=== PATIENT | female | born 1975 ===

== ENCOUNTER 2016-08-30 07:00 | Day surgery (SDC) | payer MEDICARE, OTHER ==
[2016-08-23 12:48] VITALS: BMI 35.7
[2016-08-30 07:28] LABS: ADD MANUAL DIFF? NO
[2016-08-30 07:33] LABS: BASO # 0.03 K/mm3 (0.0-2.0); BASO % 0.3 % (0.0-3.0); EOS # 0.9 (0.0-0.7); EOS % 8.6 % (1.5-5.0); GRAN # 5.64 (1.4-6.5); GRAN % 57.4 % (50.0-68.0); HEMATOCRIT 35.2 % (36.0-48.0); LYMPH # 2.6 (1.2-3.4); MEAN CELL VOLUME 87.6 fL (80.0-105.0); MEAN CORPUSCULAR HEMOGLOBIN 28.1 pg (25.0-35.0); MEAN CORPUSCULAR HGB CONC 32.1 g/dl (31.0-37.0); MEAN PLATELET VOLUME 8.8 fl (7.0-11.0); MONO # 0.8 (0.1-0.6); MONO % 7.7 % (1.0-6.0); PLATELET COUNT 259 10^3/uL (120.0-450.0); RED CELL DISTRIBUTION WIDTH 14.4 % (11.5-14.5); WHITE BLOOD COUNT 9.8 10^3/ul (4.5-11.0)
[2016-08-30 07:46] LABS: INR 0.94 (0.93-1.08); PARTIAL THROMBOPLASTIN TIME 26.1 Seconds (23.7-30.8)
[2016-08-30 07:54] LABS: CALCIUM 8.9 mg/dL (8.4-10.5); POTASSIUM 3.9 mmol/L (3.6-5.0)
[2016-08-30 08:09] VITALS: RESP 18; TEMP 98.3; O2SAT 93
[2016-08-30] MEDS ORDERED: Lidocaine 2% Inj (20ml) ONE (08:52)
[2016-08-30] MEDS ORDERED: Iohexol 350mgl/ml 50 ML ONE (08:53)
[2016-08-30] MEDS ORDERED: Midazolam 2 MG/2 ML VIAL ONE (08:53)
[2016-08-30] MEDS ORDERED: Iodixanol 320 MG/ML 200 ML BOTTLE IV ONE (08:53)
[2016-08-30] MEDS ORDERED: Iohexol 350 MG/100 ML VIAL ONE (09:43)
[2016-08-30] MEDS ORDERED: Sodium Chloride 0.45% 1,000 ML IV SCH (10:45)
--- NOTE | 2016-08-30 11:10 | CARDCATH ---
PROCEDURE DATE: 08/30/2016 HISTORY: The patient is a 41-year-old woman who presents with an abnormal stress test. She underwen t a stress test for preop clearance for possible renal transplantation. The patient suffers from end-stage renal disease treated with peritoneal dialysis, diabetes mellitus, hypertension, hypercholesterolemia and obesity. Because of her abnormal stress test, she was presented for cardiac catheterization. PROCEDURE: Left heart catheterization with coronary angiography and left ventriculogram, followed by PTCA and stent of 2 lesions in the RCA. The right femoral artery was cannulated with a 6-Frisian sheath. There were no complications. The findings on catheterization revealed a right dominant circulation. The RCA revealed diffuse atherosclerosis and calcification. There was a 70-80% stenosis in the mid p ortion as well as a long 80-90% stenosis in the proximal portion of the RCA. The left main artery revealed diffuse intimal irregularities without critical lesions. The LAD revealed diffuse atherosclerosis with a complex bifurcating mid LAD stenoses of 80-90% with a n 80% stenosis in the diagonal vessel. The circumflex artery was a large codominant vessel. There were long 50% lesions in the obtuse brian nal branch and in the mid portion of the circumflex artery as well. LV function was performed in the DEGROOT projection. In the DEGROOT projection, wall motion was normal with an EF of 55%. The patient was given Angiomax, renal dose adjusted. The right guiding catheter was placed in the ostium of the RCA. A Guideliner was used for better sup port. An ATW wire was used to cross the multiple lesions. A 2.0 balloon was utilized to predilate both les ions. The mid lesion was stented with a 2.25 x 15 mm drug-eluting stent. The proximal lesion was stented with a 2.75 x 18 mm drug-eluting stent. Repeat coronary angiography revealed an excellent result with no residual stenosis and MICHAEL 3 flow. Angio-Seal was used to close the femoral artery site. SUMMARY: 1. The procedure was successful percutaneous transluminal coronary angioplasty and stent of 2 critic al lesions in the right coronary artery with drug-eluting stents. 2. Cardiac catheterization revealed diffuse atherosclerosis with multivessel coronary artery disease with the most critical lesions in the right coronary artery as well as in the left anterior descendi ng and diagonal vessels with borderline critical lesions in the circumflex artery. 3. Left ventricular function was normal which is much better than the stress test report. Given these findings, the patient will need to remain on aspirin indefinitely and Plavix for at least a year. I have changed her statin therapy from Pravachol to Lipitor 40 mg daily. Because of the lack of peritoneal dialysis at [facility] and after consultation with the nephro logist, if the patient remains stable, we will discharge her later this evening so that the patient c an go home for peritoneal dialysis at home. Followup instructions have been given to the patient. S he will see me in the office next week on Friday. In addition, we will schedule her for staged PTCA of the LAD and diagonal vessels next week. Uday Chavez MD cc: [id number] TT: 08/30/2016 11:09:33 tn
--- NOTE | 2016-08-30 12:23 | CP.PCM.CON ---
History of Present Illness - History of Present Illness History of Present Illness: Initial Nephrology Consultation: Assessment/Plan: End stage renal disease on APD: Pt due for PD tonight. she is planned for d/c home today evening and she will resume her PD at home. No acute need for dialysis at this time. Nephrovite 1 tab/day Hyperphosphatemia: continue with home meds (Aurxia) Hypertension: resume home meds. She takes Cardizem, coreg, hydralazine and lisinopril Dialysis consistent diabetic diet. Glycemic control CAD management as per cardiology. Thanks for allowing me to participate in care of your patient. Will follow patient with you. Please call if any Qs. D/w primary team Dr Abisai Linares Office: [phone] Chief Complaint; dialysis. I feel anxious HPI: Pt is a 41 y/o F with hx of ESRD on peritoneal dialysis (APD) x 1 year, had dialysis last night, also hx of DM since childhood complicated by diabetic kidney disease, retinopathy, visual impairment, HTN x 1 year, hyperphosphatemia , underwent cardiac cath today which showed Obstructive CAD and she underwent stent placement. patient was seen for ESRD management. she feels anxious and reports chronic SOB when lay flat. makes urine. denies chest pain/leg swelling. PD: she uses cycler at night 5 cycles 2000 mL fill volume with 1.5% and 2.5% dextrose ROS: Constitutional Symptoms: Denies fever. No chills. No Recent Weight Changes Eyes: c/o decrease vision, denies watery eyes, denies double vision Ears/Nose/Mouth/Throat: Denies Abnormal Taste. No Bad breath or Bad Taste. Cardiovascular: denies chest pain. There is c/o chronic shortness of breath. No palpitations. Pulmonary: c/o chrnic shortness of breath no cough. Gastrointestinal: denies abdominal pain No nausea. No vomiting. c/o constipation. Denies Bleeding Genitourinary: makes urine. no painful or burning urination. no blood Neurological: Denies headaches. No dizziness. Denies loss of balance. Denies weakness, denies tingling/numbness Dermatological: No Rash or Bruising or ulcers. Psychiatric: c/o Anxiety. No depression. Denies hallucinations. Rheumatological:no joint pain Denies Joint swelling Endocrine: Denies over tiredness. no Fatigue and no Heat/Cold Intolerance. Physical Examination: General Appearance: Comfortable, no acute respi distress. co-operative. daughter bedside Vitals reviewed and noted as below Head; Atraumatic, normocephalic ENT: no ulcers no thrush. Tongue is midline. Oropharynx: no rash or ulcers. EYES: Pupils are equal, round and reactive to light accommodation. Eye muscles and extraocular movement intact. Sclera is anicteric. Neck; supple no lymphadenopathy, no thyromegaly or bruit Lungs: normal respiratory rate/effort. Breath sounds bilateral equal and clear Heart: Normal rate. s1s2 normal. No rub or gallop. Extremities: no edema. No varicose veins Neurological: Patient is alert, awake and oriented to person, place and time. No focal deficit. Strength bilateral appropriate and equal Skin: Warm and dry. Normal turgor. No rash. Palpitation: Normal elasticity for age Abdomen: Abdomen is soft. Bowel sounds +. There is no abdominal tenderness, no guarding/rigidity or organomegaly Psych: normal insight and upset MSK: no joint tenderness or swelling. Digits and nails normal, no deformity : kidney or bladder not palpable Access: has PD catheter Labs/imaging/EKG reviewed. 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) Other/Comment: hx nasal polyps - RENAL Hx Chronic Kidney Disease: Yes Hx Kidney Stones: Yes Hx Pyelonephritis: Yes Hx Renal Failure: Yes (not on dialysis as of this date) - ENDOCRINE/METABOLIC Hx Endocrine Disorders: Yes Hx Diabetes Mellitus Type 1: Yes - HEMATOLOGICAL/ONCOLOGICAL Hx Blood Transfusions: No - INTEGUMENTARY Hx Dermatological Problems: No - MUSCULOSKELETAL/RHEUMATOLOGICAL Hx Musculoskeletal Disorders: No - GASTROINTESTINAL Hx Gastrointestinal Disorders: Yes Hx Gall Bladder Disease: Yes - GENITOURINARY/GYNECOLOGICAL Hx Genitourinary Disorders: No - PSYCHIATRIC Hx Emotional Abuse: No Hx Physical Abuse: No Hx Substance Use: No - SURGICAL HISTORY Hx Surgeries: Yes - ANESTHESIA Hx Anesthesia Reactions: No Hx Malignant Hyperthermia: No Meds Home Medications: Home Medication List Medication Instructions Recorded Confirmed Type Atorvastatin [Lipitor] 40 mg PO DIN #30 tab 08/30/16 Rx Allergies/Adverse Reactions: Allergies Allergy/AdvReac Type Severity Reaction Status Date / Time Penicillins Allergy Severe RASH Verified 08/23/16 12:48 - Medications Medications: Current Medications Aspirin (Ecotrin) 81 mg PO DAILY SIMONE Atorvastatin Calcium (Lipitor) 40 mg PO DIN SIMONE Clopidogrel Bisulfate (Plavix) 75 mg PO DAILY [facility] Sodium Chloride (Sodium Chloride 0.45%) 1,000 mls @ 5 mls/hr IV .Q24H SIMONE Stop: 08/30/16 16:00 Results - Vital Signs Recent Vital Signs: Last Vital Signs Temp 98.3 F 08/30/16 07:20 Pulse 84 08/30/16 07:20 Resp 18 08/30/16 07:20 BP 172/87 H 08/30/16 07:20 Pulse Ox 93 L 08/30/16 07:20 - Labs Result Diagrams: 08/30/16 07:20 08/30/16 07:20 Labs: Laboratory Results - last 24 hr 08/30/16 07:20 WBC 9.8 RBC 4.02 Hgb 11.3 L Hct 35.2 L MCV 87.6 MCH 28.1 MCHC 32.1 RDW 14.4 Plt Count 259 MPV 8.8 Gran % 57.4 Lymph % (Auto) 26.0 Swain % (Auto) 7.7 H Eos % (Auto) 8.6 H Baso % (Auto) 0.3 Gran # 5.64 Lymph # 2.6 Swain # 0.8 H Eos # 0.9 H Baso # 0.03 PT 10.1 INR 0.94 APTT 26.1 Sodium 137 Potassium 3.9 Chloride 99 Carbon Dioxide 28 Anion Gap 14 BUN 69 H Creatinine 10.9 H* Est GFR ( Amer) 5 Est GFR (Non-Af Amer) 4 Random Glucose 136 H Calcium 8.9 Blood Type O NEGATIVE Antibody Screen Negative BBK History Checked Patient has bt
[2016-08-30 19:04] VITALS: BP 138/85; PULSE 75
--- NOTE | 2016-08-31 11:19 | CARD ---
APPROVED REPORT EKG Measurement Heart [id number] <Conclusion> Normal sinus rhythm PRWP V 1 - 4 No change
== END 2016-08-30 19:04 | disposition home or self-care (01) ==
LOC: CATH 07:00 → 2RSO 10:44 → CATH 19:04
PROVIDERS: ATTEND Internal Medicine Cardiovascular Disease
DX: I25.10 Atherosclerotic heart disease of native coronary artery without angina pectoris (principal); I12.0 Hypertensive chronic kidney disease with stage 5 chronic kidney disease or end stage renal disease; N18.6 End stage renal disease; E10.22 Type 1 diabetes mellitus with diabetic chronic kidney disease; E10.319 Type 1 diabetes mellitus with unspecified diabetic retinopathy without macular edema; H54.7 Unspecified visual loss; E78.00 Pure hypercholesterolemia, unspecified; E66.9 Obesity, unspecified; Z68.35 Body mass index [BMI] 35.0-35.9, adult; E83.39 Other disorders of phosphorus metabolism; Z79.82 Long term (current) use of aspirin; Z99.2 Dependence on renal dialysis; Z88.0 Allergy status to penicillin
CPT/HCPCS: 36415; 80048; 82948; 85025; 85610; 85730; 86850; 86900; 93005; 93458; 99152; C1725; C1760; C1769 ×2; C1874 ×2; C1887 ×2; C2629; C9600; J0583; J1644; J2250; J3010; J7030 ×2; Q9967 ×2

== ENCOUNTER 2016-09-05 06:48 | Day surgery (SDC) | payer MEDICARE, OTHER ==
[2016-08-23 12:48] VITALS: BMI 35.7
[2016-09-05 07:15] LABS: ADD MANUAL DIFF? NO
[2016-09-05 07:20] LABS: BASO # 0.04 K/mm3 (0.0-2.0); BASO % 0.4 % (0.0-3.0); EOS # 0.8 (0.0-0.7); EOS % 6.9 % (1.5-5.0); GRAN # 7.66 (1.4-6.5); GRAN % 67.3 % (50.0-68.0); HEMATOCRIT 35.2 % (36.0-48.0); LYMPH # 2.3 (1.2-3.4); LYMPH % 19.9 % (22.0-35.0); MEAN CELL VOLUME 86.5 fL (80.0-105.0); MEAN CORPUSCULAR HGB CONC 32.4 g/dl (31.0-37.0); MEAN PLATELET VOLUME 9.3 fl (7.0-11.0); MONO # 0.6 (0.1-0.6); MONO % 5.5 % (1.0-6.0); PLATELET COUNT 274 10^3/uL (120.0-450.0); WHITE BLOOD COUNT 11.4 10^3/ul (4.5-11.0)
[2016-09-05 07:29] LABS: INR 0.93 (0.93-1.08); PARTIAL THROMBOPLASTIN TIME 26.6 Seconds (23.7-30.8)
[2016-09-05 07:52] VITALS: BP 139/75; PULSE 81; RESP 18; TEMP 98.2; O2SAT 96
[2016-09-05] MEDS ORDERED: Lidocaine 2% Inj (20ml) ONE (09:30)
[2016-09-05] MEDS ORDERED: Midazolam 2 MG/2 ML VIAL ONE ×2 (09:31→09:54)
[2016-09-05] MEDS ORDERED: Iohexol 350mgl/ml 50 ML ONE (09:32)
[2016-09-05] MEDS ORDERED: Iodixanol 320 MG/ML 100 ML BOTTLE IV ONE (09:32)
[2016-09-05] MEDS ORDERED: Iodixanol 320 MG/ML 200 ML BOTTLE IV ONE (09:32)
[2016-09-05] MEDS ORDERED: Sodium Chloride 0.45% 1,000 ML IV SCH (11:00)
--- NOTE | 2016-09-05 11:22 | CARDCATH ---
PROCEDURE DATE: 09/05/2016 HISTORY: The patient is a 41-year-old woman with multiple cardiac risk factors including end-stage r enal disease, diabetes mellitus, hypertension, history of smoking, as well as hypercholesterolemia, w ho presents for staged PTCA of the LAD and diagonal vessels. The patient underwent a stress test and cardiac catheterization last week, which revealed multivessel CAD. She underwent successful PTCA and stent of 2 lesions in the RCA, and she presents for PTCA and stent of lesions in the LAD and diagonal vessel. The left femoral artery was cannulated with a 7-Mozambican sheath. There were no complications. The findings on catheterization revealed a right dominant circulation. The RCA revealed diffuse atherosclerosis with patent stents in the proximal and mid-portions, which w ere placed last week. The left main artery revealed atherosclerosis without critical lesions. The LAD revealed an 80% stenosis in the proximal portion at the takeoff of a diagonal vessel. The di agonal vessel revealed a 90% stenosis in the mid-portion. The patient was started on intravenous Angiomax. Under fluoroscopic guide, a 7-Mozambican guiding catheter was placed in the ostium of the left main arter y. An 0.014 ATW wire was placed in the LAD past the critical lesion. A 2nd ATW wire was placed in the diagonal vessel past the critical lesion. A 2.0 balloon was utilized to dilate both lesions. A 2.25 x 8 mm drug-eluting stent was placed and deployed at 9 atmospheres of pressure in the diagonal lesion with excellent results, with no residual stenosis. A 2.5 x 8 mm drug-eluting stent was placed in the LAD lesion at 9 atmospheres of pressure. Repeat co ronary angiography revealed an excellent result with no residual stenosis, and MICHAEL 3 flow. Angio-Seal was used to close the femoral artery site. The patient tolerated the procedure well. In summary, the procedure was successful for PTCA and stent of a mid-LAD lesion as well as a diagonal lesion with drug-eluting stents. Cardiac catheterization revealed multivessel CAD with patent stents in the RCA that were placed last week, as well as the critical lesions as noted in the LAD and diagonal vessels. Given these findings, given the lack of peritoneal facilities at this institution, the patient will b e discharged at 6:00 today where she will undergo peritoneal dialysis at home. We will make sure hem odynamics are stable prior to discharge. She will need to remain on aspirin indefinitely, and Plavix for at least 1 year. We will need to def er her renal transplant until the patient can be taken off Plavix. Uday Chavez MD cc: [id number] TT: 09/05/2016 11:22:04 jn
--- NOTE | 2016-09-05 15:20 | CARD ---
APPROVED REPORT EKG Measurement Heart [id number] [place] [id number] <Conclusion> Normal sinus rhythm Normal ECG
== END 2016-09-05 17:54 | disposition home or self-care (01) ==
LOC: CATH 06:48 → 2RSO 11:01 → CATH 17:54
PROVIDERS: ATTEND Internal Medicine Cardiovascular Disease
DX: I25.10 Atherosclerotic heart disease of native coronary artery without angina pectoris (principal); N18.6 End stage renal disease; I12.0 Hypertensive chronic kidney disease with stage 5 chronic kidney disease or end stage renal disease; E11.22 Type 2 diabetes mellitus with diabetic chronic kidney disease; E78.00 Pure hypercholesterolemia, unspecified; Z99.2 Dependence on renal dialysis; Z87.891 Personal history of nicotine dependence
CPT/HCPCS: 36415; 80048; 80061; 85025; 85610; 85730; 86850; 86900; 93005; 93454; 99152; 99153; C1725; C1760; C1769 ×2; C1874 ×2; C1887; C1894; C9600; C9601; J0583; J1644; J2250; J3010; J7030; J7040; Q9967 ×2